=== PATIENT | female | born 1980 | race Caucasian/White ===

== ENCOUNTER 2021-10-28 11:40 | Inpatient (IN) | payer OTHER ==
[~2021-10-28] VITALS: Ht 154.9 cm; Wt 74.8 kg
[~2021-10-28 11:40] MED LIST: BACTRIM DS TAB1 EACH PO; IBUPROFEN800 MG PO; TORADOL 10 MG T10 MG PO
[2021-10-28 15:38] LABS: HEMOGLOBIN 11.1 gm/dl (12.3-15.3); RED BLOOD COUNT 4.15 M/UL (4.00-5.10); WHITE BLOOD COUNT 11.6 K/UL (4.5-11.0)
[2021-10-28 16:00] LABS: BUN/CREATININE RATIO 22 (0-10)
[2021-10-29 06:45] LABS: RED BLOOD COUNT 4.07 M/UL (4.00-5.10)
[2021-10-29 07:33] LABS: BUN/CREATININE RATIO 12 (0-10)
[2021-10-30 04:36] LABS: HEMOGLOBIN 12.4 gm/dl (12.3-15.3); RED BLOOD COUNT 4.65 M/UL (4.00-5.10); WHITE BLOOD COUNT 11.3 K/UL (4.5-11.0)
[2021-10-30 04:55] LABS: BUN/CREATININE RATIO 15 (0-10)
[2021-10-30] MEDS ORDERED: BACTRIM DS TAB1 EACH PO (10:37)
[2021-10-31 06:37] LABS: HEMOGLOBIN 11.2 gm/dl (12.3-15.3); RED BLOOD COUNT 4.23 M/UL (4.00-5.10); WHITE BLOOD COUNT 10.2 K/UL (4.5-11.0)
[2021-10-31 07:03] LABS: BUN/CREATININE RATIO 21 (0-10)
[2021-10-31] MEDS ORDERED: ZYVOX600 MG PO (13:44)
[2021-11-01 05:04] LABS: HEMOGLOBIN 12.6 gm/dl (12.3-15.3); WHITE BLOOD COUNT 9.1 K/UL (4.5-11.0)
[2021-11-01 05:05] LABS: RED BLOOD COUNT 4.68 M/UL (4.00-5.10)
[2021-11-01 05:53] LABS: BUN/CREATININE RATIO 19 (0-10)
[2021-11-01] MEDS ORDERED: ELIQUIS5 MG PO (14:09)
[2021-11-01] MEDS ORDERED: TYLENOL325 MG PO (14:12)
[2021-11-03 05:42] LABS: BUN/CREATININE RATIO 14 (0-10)
== END 2021-11-01 16:43 | disposition home or self-care (01) | DRG 603 ==
LOC: ER1 11:40 → CDU 17:07 → M/S 17:07
PROVIDERS: Internal Medicine; Orthopaedic Surgery; Physician Assistant; Physician Assistant Medical; ADMIT Internal Medicine
PROC: 0X9J0ZZ Drainage of Right Hand, Open Approach (ICD-10-PCS; principal; 2021-10-29 19:30)
DX: L02.511 Cutaneous abscess of right hand (principal); I82.611 Acute embolism and thrombosis of superficial veins of right upper extremity; T82.868A Thrombosis due to vascular prosthetic devices, implants and grafts, initial encounter; L03.011 Cellulitis of right finger; M32.9 Systemic lupus erythematosus, unspecified; B18.2 Chronic viral hepatitis C; F17.210 Nicotine dependence, cigarettes, uncomplicated; B95.62 Methicillin resistant Staphylococcus aureus infection as the cause of diseases classified elsewhere; Z79.899 Other long term (current) drug therapy
CPT/HCPCS: 36415; 73000; 73130; 80048; 80053; 80202; 83605; 83735; 84703; 85025; 85027; 85652; 86140; 87040; 87070; 87077; 87186; 87205; 90471; 90715; 93971; 96374; 96375; 96376; 99284; G0378; J0690; J0692; J1100; J1170; J2001; J2185; J2250; J2405; J2704; J3010; J3370; J7030; J7070